=== PATIENT | female | born 2000 | race Caucasian/White ===

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

== ENCOUNTER 2019-02-05 07:51 | Emergency (ER) | payer OTHER ==
[2019-02-05] MEDS ORDERED: NS 0.9% 1000 ML** 1,000 ML IV ONE (08:16)
[2019-02-05] MEDS ORDERED: Ondansetron INJ* 2 MG/ML VIAL IV ONE (08:16)
--- NOTE | 2019-02-05 09:49 | UC ---
Nausea/Vomiting/Diarrhea HPI - HPI Summary HPI Summary: PATIENT HAS HAD WATERY DIARRHEA FOR ABOUT 5 DAYS. ONSET AFTER EATING A STEAK THAT SHE PREPARED A HOME. SYMPTOMS ARE NOT WORSE WITH MORE FREQUENT EPISODES OF WATERY DIARRHEA. NO BLOOD. LAST NIGHT DEVELOPED NAUSEA AND VOMITING WELL. STATES SHE IS NOW UNABLE TO KEEP DOWN ANY FOOD OR FLUID. EVEN WATER MAKES HER VOMIT. - History of Current Complaint Chief Complaint: UCAbdominalPain Stated Complaint: VOMITTING/LOOSE STOOLS Time Seen by Provider: 02/05/19 08:16 Hx Obtained From: Patient Hx Last Menstrual Period: 01/26/19 Onset/Duration: Gradual Onset, Lasting Days, Still Present Timing: Constant Severity Initially: Moderate Severity Currently: Moderate Pain Intensity: 5 Pain Scale Used: 0-10 Numeric Location: Diffuse Character: Sharp, Cramping Aggravating Factor(s): Food Alleviating Factor(s): Nothing Nausea/Vomiting Presence: Nauseated, Vomiting Vomiting Characteristics: Nonbilious Diarrhea Presence: Yes Diarrhea Frequency: Every 1-2 hours Diarrhea Duration: 3-7 days Diarrhea Characteristics: Watery - Allergies/Home Medications Allergies/Adverse Reactions: Allergies Allergy/AdvReac Type Severity Reaction Status Date / Time No Known Allergies Allergy Verified 02/05/19 08:01 Home Medications: Home Medications Loperamide CAP* [Imodium CAP*] 2 mg PO Q4H PRN 02/05/19 [History Confirmed 02/05] PMH/Surg Hx/FS Hx/Imm Hx Previously Healthy: Yes Other History Of: Negative For: Anticoagulant Therapy - Surgical History Surgical History: None - Family History Known Family History: Negative: Diabetes - Social History Alcohol Use: Occasionally Substance Use Type: None Smoking Status (MU): Never Smoked Tobacco Review of Systems All Other Systems Reviewed And Are Negative: Yes Constitutional: Positive: Negative Skin: Positive: Negative Respiratory: Positive: Negative Cardiovascular: Positive: Negative Gastrointestinal: Positive: Abdominal Pain, Vomiting, Diarrhea, Nausea Genitourinary: Positive: Negative Physical Exam Triage Information Reviewed: Yes Appearance: Well-Appearing, No Pain Distress Vital Signs: Initial Vital Signs Temp 96.9 F 02/05/19 08:02 Pulse 106 02/05/19 08:02 Resp 16 02/05/19 08:02 BP 105/63 02/05/19 08:02 Pulse Ox 99 02/05/19 08:02 Vital Signs Reviewed: Yes Eyes: Positive: Conjunctiva Clear ENT: Positive: Hearing grossly normal Neck: Positive: Supple Respiratory Exam: Normal Cardiovascular Exam: Normal Abdomen Description: Positive: Soft, Other: - MILDLY TENDER LOWER ABDOMEN, WORSE LLQ. Negative: CVA Tenderness (R), CVA Tenderness (L), Distended, Guarding Bowel Sounds: Positive: Present Musculoskeletal: Positive: No Edema Neurological: Positive: Alert Psychological: Positive: Age Appropriate Behavior Skin: Negative: Rashes Re-Evaluation - Re-Evaluation First Eval Re-Evaluation Time: 10:50 - FELT IMPROVED AFTER 1 L NORMAL SALINE AND 4 MG OF ZOFRAN IV. WAS ABLE TO TOLERATE A FULL BOTTLE OF WATER AND SOME SODA CRACKERS WITHOUT DIFFICULTY. Change: Improved Naus/Vom/Diarrhea Course/Dx - Differential Dx/Diagnosis Provider Diagnosis: Gastroenteritis Condition At Discharge: Stable Discharge - Sign-Out/Discharge Documenting (check all that apply): Patient Departure All imaging exams completed and their final reports reviewed: No Studies - Discharge Plan Condition: Stable Disposition: HOME Prescriptions: Ondansetron ODT TAB* [Zofran Odt TAB*] 4 mg PO Q6H PRN #20 tab.odt PRN Reason: Nausea/Vomiting Patient Education Materials: Gastroenteritis (ED) Forms: *School Release Referrals: [facility] [Provider Group] - If Needed Additional Instructions: YOUR SYMPTOMS MAY SIMPLY BE DUE TO A VIRALLY MEDIATED GASTROENTERITIS AND WILL HOPEFULLY IMPROVE OVER THE NEXT FEW DAYS. TAKE ZOFRAN NEEDED FOR NAUSEA. BE SURE TO STAY WELL-HYDRATED. YOU PROVIDED ENOUGH OF A STOOL SAMPLE HERE TO SEND FOR CULTURE HOWEVER THE REMAINDER OF THE STOOL STUDIES NEED A BIGGER SAMPLE. BRING BACK A SPECIMEN FOR TESTING IF YOUR SYMPTOMS PERSIST. GO TO THE ER WITHOUT FAIL IF YOU DEVELOP WORSENING ABDOMINAL PAIN, FEVER, INABILITY TO KEEP DOWN ANY FOOD OR FLUIDS OR IF YOU DEVELOP ANY OTHER CONCERNING SYMPTOMS. GASTROENTERITIS: You have gastroenteritis ("intestinal flu"). This disease is usually caused by a virus. There is no specific treatment. The disease will end by itself. For now, the main danger is dehydration. Give clear liquids. Examples include Pedialyte, Gatorade, clear broth, juices, flat sodas, and jello water. Medications may be prescribed by the physician for special cases. Once tolerated, the clear liquid diet may be supplemented with rice, cereal, toast, applesauce, or bananas. GO TO [facility] WITHOUT FAIL if vomiting increases or blood appears in the bowel movement or vomitus; if you fail to improve, or if signs of dehydration occur (tongue and mouth become dry, lethargy). ENSURE ADEQUATE HYDRATION. CLEAR LIQUIDS, BLAND DIET. AVOID CAFFEINE, DAIRY, GREASY, SPICY FOODS. ONCE YOU ARE TOLERATING CLEAR LIQUIDS YOU CAN ADVANCE TO SIMPLE, BLAND FOODS. - Billing Disposition and Condition Condition: STABLE Disposition: Home
[2019-02-05 10:06] VITALS: BP 115/58
== END 2019-02-05 11:25 | disposition home or self-care (01) ==
LOC: UCEAST 07:51
DX: K52.9 Noninfective gastroenteritis and colitis, unspecified (principal)
CPT/HCPCS: 87045; 87046; 87077; 96360; 96374; 99212; G0463; J2405